=== PATIENT | male | born 1940 | race Native Hawaiian/Other Pacific Islander ===

== ENCOUNTER 2016-09-14 14:02 | Outpatient (CLI) | payer OTHER ==
[2016-09-14 14:34] LABS: PARTIAL THROMBOPLASTIN TIME 36.1 SECONDS (24.5-33.6)
== END 2016-09-14 16:02 | disposition home or self-care (01) ==
LOC: LABW 14:02
PROVIDERS: Internal Medicine
DX: Z79.01 Long term (current) use of anticoagulants (principal); Z51.81 Encounter for therapeutic drug level monitoring
CPT/HCPCS: 36415; 85610; 85730

== ENCOUNTER 2016-10-05 13:27 | Outpatient (CLI) | payer MEDICARE ==
[2016-10-05 14:16] LABS: PARTIAL THROMBOPLASTIN TIME 32.6 SECONDS (24.5-33.6)
== END 2016-10-05 19:08 | disposition home or self-care (01) ==
LOC: LABW 13:27
PROVIDERS: Internal Medicine
DX: Z79.01 Long term (current) use of anticoagulants (principal); Z51.81 Encounter for therapeutic drug level monitoring
CPT/HCPCS: 36415; 85610; 85730

== ENCOUNTER 2016-11-01 18:19 | Outpatient (CLI) | payer MEDICARE ==
[2016-11-01 19:12] LABS: PARTIAL THROMBOPLASTIN TIME 31.3 SECONDS (24.5-33.6)
== END 2016-11-01 19:19 | disposition home or self-care (01) ==
LOC: LABW 18:19
PROVIDERS: Internal Medicine
DX: Z79.01 Long term (current) use of anticoagulants (principal); Z51.81 Encounter for therapeutic drug level monitoring
CPT/HCPCS: 85610; 85730

== ENCOUNTER 2016-12-01 14:41 | Outpatient (CLI) | payer MEDICARE ==
[2016-12-01 15:19] LABS: PARTIAL THROMBOPLASTIN TIME 32.5 SECONDS (24.5-33.6)
== END 2016-12-01 19:11 | disposition home or self-care (01) ==
LOC: LABW 14:41
PROVIDERS: Internal Medicine
DX: Z79.01 Long term (current) use of anticoagulants (principal); Z51.81 Encounter for therapeutic drug level monitoring
CPT/HCPCS: 36415; 85610; 85730

== ENCOUNTER 2017-01-04 13:38 | Outpatient (CLI) | payer MEDICARE ==
[2017-01-04 14:53] LABS: PARTIAL THROMBOPLASTIN TIME 35.4 SECONDS (24.5-33.6)
== END 2017-01-04 19:52 | disposition home or self-care (01) ==
LOC: LABW 13:38
PROVIDERS: Internal Medicine
DX: Z79.01 Long term (current) use of anticoagulants (principal); Z51.81 Encounter for therapeutic drug level monitoring
CPT/HCPCS: 36415; 85610; 85730

== ENCOUNTER 2017-02-01 12:01 | Outpatient (CLI) | payer MEDICARE ==
[2017-02-01 12:55] LABS: PARTIAL THROMBOPLASTIN TIME 34.3 SECONDS (24.5-33.6)
== END 2017-02-01 13:05 | disposition home or self-care (01) ==
LOC: LABW 12:01
PROVIDERS: Internal Medicine
DX: Z79.01 Long term (current) use of anticoagulants (principal); Z51.81 Encounter for therapeutic drug level monitoring
CPT/HCPCS: 36415; 85610; 85730

== ENCOUNTER 2017-03-08 13:00 | Outpatient (CLI) | payer MEDICARE ==
[2017-03-08 14:00] LABS: PARTIAL THROMBOPLASTIN TIME 32.5 SECONDS (24.5-33.6)
== END 2017-03-08 14:00 | disposition home or self-care (01) ==
LOC: LABW 13:00
PROVIDERS: Internal Medicine
DX: Z79.01 Long term (current) use of anticoagulants (principal); Z51.81 Encounter for therapeutic drug level monitoring
CPT/HCPCS: 85610; 85730

== ENCOUNTER 2017-05-10 13:08 | Outpatient (CLI) | payer MEDICARE ==
[2017-05-10 14:06] LABS: PARTIAL THROMBOPLASTIN TIME 32.9 SECONDS (24.5-33.6)
== END 2017-05-10 14:10 | disposition home or self-care (01) ==
LOC: LABW 13:08
PROVIDERS: Internal Medicine
DX: Z79.01 Long term (current) use of anticoagulants (principal); Z51.81 Encounter for therapeutic drug level monitoring
CPT/HCPCS: 36415; 85610; 85730

== ENCOUNTER 2017-06-07 13:07 | Outpatient (CLI) | payer MEDICARE ==
[2017-06-07 13:41] LABS: PARTIAL THROMBOPLASTIN TIME 32.5 SECONDS (24.5-33.6)
== END 2017-06-07 19:19 | disposition home or self-care (01) ==
LOC: LABW 13:07
PROVIDERS: Internal Medicine
DX: Z79.01 Long term (current) use of anticoagulants (principal); Z51.81 Encounter for therapeutic drug level monitoring
CPT/HCPCS: 36415; 85610; 85730

== ENCOUNTER 2017-08-12 13:03 | Outpatient (CLI) | payer OTHER ==
[2017-08-12 13:33] LABS: PARTIAL THROMBOPLASTIN TIME 33.2 SECONDS (24.5-33.6)
== END 2017-08-12 19:30 | disposition home or self-care (01) ==
LOC: LABW 13:03
PROVIDERS: Internal Medicine
DX: Z79.01 Long term (current) use of anticoagulants (principal); Z51.81 Encounter for therapeutic drug level monitoring
CPT/HCPCS: 36415; 85610; 85730

== ENCOUNTER 2017-09-13 12:53 | Outpatient (CLI) | payer OTHER ==
[2017-09-13 14:07] LABS: PARTIAL THROMBOPLASTIN TIME 32.7 SECONDS (24.5-33.6)
== END 2017-09-13 23:48 | disposition home or self-care (01) ==
LOC: LABW 12:53
PROVIDERS: Internal Medicine
DX: Z79.01 Long term (current) use of anticoagulants (principal); Z51.81 Encounter for therapeutic drug level monitoring
CPT/HCPCS: 36415; 85610; 85730

== ENCOUNTER 2017-10-11 14:45 | Outpatient (CLI) | payer OTHER ==
[2017-10-11 15:41] LABS: PARTIAL THROMBOPLASTIN TIME 31.8 SECONDS (24.5-33.6)
== END 2017-10-11 16:00 | disposition home or self-care (01) ==
LOC: LABW 14:45
PROVIDERS: Internal Medicine
DX: Z79.01 Long term (current) use of anticoagulants (principal); Z51.81 Encounter for therapeutic drug level monitoring
CPT/HCPCS: 36415; 85610; 85730

== ENCOUNTER 2017-11-15 14:26 | Outpatient (CLI) | payer OTHER ==
[2017-11-15 15:12] LABS: PARTIAL THROMBOPLASTIN TIME 31.4 SECONDS (24.5-33.6)
== END 2017-11-15 19:51 | disposition home or self-care (01) ==
LOC: LABW 14:26
PROVIDERS: Internal Medicine
DX: Z79.01 Long term (current) use of anticoagulants (principal); Z51.81 Encounter for therapeutic drug level monitoring
CPT/HCPCS: 36415; 85610; 85730

== ENCOUNTER 2017-11-28 11:57 | Outpatient (CLI) | payer OTHER ==
[2017-11-28 13:33] LABS: PARTIAL THROMBOPLASTIN TIME 32.6 SECONDS (24.5-33.6)
== END 2017-11-28 19:27 | disposition home or self-care (01) ==
LOC: LABW 11:57
PROVIDERS: Internal Medicine
DX: Z79.01 Long term (current) use of anticoagulants (principal); Z51.81 Encounter for therapeutic drug level monitoring
CPT/HCPCS: 36415; 85610; 85730

== ENCOUNTER 2018-01-03 12:26 | Outpatient (CLI) | payer OTHER ==
[2018-01-03 13:08] LABS: PARTIAL THROMBOPLASTIN TIME 32.5 SECONDS (24.5-33.6)
== END 2018-01-03 23:05 | disposition home or self-care (01) ==
LOC: LABW 12:26
PROVIDERS: Internal Medicine
DX: Z79.01 Long term (current) use of anticoagulants (principal); Z51.81 Encounter for therapeutic drug level monitoring
CPT/HCPCS: 36415; 85610; 85730

== ENCOUNTER 2018-02-06 17:41 | Outpatient (CLI) | payer OTHER ==
[2018-02-06 18:19] LABS: PARTIAL THROMBOPLASTIN TIME 34.7 SECONDS (24.5-33.6)
== END 2018-02-06 19:21 | disposition home or self-care (01) ==
LOC: LABW 17:41
PROVIDERS: Internal Medicine
DX: Z79.01 Long term (current) use of anticoagulants (principal)
CPT/HCPCS: 36415; 85610; 85730

== ENCOUNTER 2018-02-27 16:17 | Outpatient (CLI) | payer OTHER ==
[2018-02-27 16:50] LABS: PARTIAL THROMBOPLASTIN TIME 28.6 SECONDS (24.5-33.6)
== END 2018-02-27 22:06 | disposition home or self-care (01) ==
LOC: LABW 16:17
PROVIDERS: Internal Medicine
DX: Z79.01 Long term (current) use of anticoagulants (principal); Z51.81 Encounter for therapeutic drug level monitoring
CPT/HCPCS: 36415; 85610; 85730

== ENCOUNTER 2018-05-08 09:32 | Outpatient (CLI) | payer OTHER | END 2018-05-08 22:17 | disposition home or self-care (01) | LOC: LABW 09:32 | DX: Z79.01 Long term (current) use of anticoagulants (principal) | CPT/HCPCS: 36415; 85610 ==

== ENCOUNTER 2018-05-29 17:03 | Outpatient (CLI) | payer OTHER | END 2018-05-29 19:27 | disposition home or self-care (01) | LOC: LABW 17:03 | DX: Z79.01 Long term (current) use of anticoagulants (principal) | CPT/HCPCS: 36415; 85610 ==

== ENCOUNTER 2018-06-12 13:17 | Outpatient (CLI) | payer OTHER | END 2018-06-12 19:32 | disposition home or self-care (01) | LOC: LABW 13:17 | DX: Z79.01 Long term (current) use of anticoagulants (principal) | CPT/HCPCS: 36415; 85610 ==

== ENCOUNTER 2018-07-28 16:25 | Outpatient (CLI) | payer OTHER ==
[2018-07-28 20:21] LABS: PARTIAL THROMBOPLASTIN TIME 37.2 SECONDS (24.5-33.6)
== END 2018-07-28 22:04 | disposition home or self-care (01) ==
LOC: LABW 16:25
PROVIDERS: Family Medicine
DX: Z79.01 Long term (current) use of anticoagulants (principal)
CPT/HCPCS: 36415; 85610; 85730

== ENCOUNTER 2018-09-22 16:06 | Outpatient (CLI) | payer OTHER | END 2018-09-22 20:34 | disposition home or self-care (01) | LOC: LABW 16:06 | DX: Z79.01 Long term (current) use of anticoagulants (principal); Z79.899 Other long term (current) drug therapy; Z95.2 Presence of prosthetic heart valve | CPT/HCPCS: 36415; 85610 ==

== ENCOUNTER 2018-09-26 12:49 | Outpatient (CLI) | payer OTHER | END 2018-09-26 21:08 | disposition home or self-care (01) | LOC: LABW 12:49 | DX: Z79.01 Long term (current) use of anticoagulants (principal); Z79.899 Other long term (current) drug therapy; Z95.2 Presence of prosthetic heart valve | CPT/HCPCS: 36415; 85610 ==

== ENCOUNTER 2018-10-03 12:22 | Outpatient (CLI) | payer OTHER | END 2018-10-03 19:33 | disposition home or self-care (01) | LOC: LABW 12:22 | DX: Z95.2 Presence of prosthetic heart valve (principal); Z79.899 Other long term (current) drug therapy; Z79.01 Long term (current) use of anticoagulants | CPT/HCPCS: 36415; 85610 ==

== ENCOUNTER 2018-10-17 14:10 | Outpatient (CLI) | payer OTHER | END 2018-10-17 22:17 | disposition home or self-care (01) | LOC: LABW 14:10 | DX: Z79.01 Long term (current) use of anticoagulants (principal); Z79.899 Other long term (current) drug therapy; Z95.2 Presence of prosthetic heart valve | CPT/HCPCS: 36415; 85610 ==

== ENCOUNTER 2018-11-13 14:44 | Outpatient (CLI) | payer OTHER | END 2018-11-13 22:29 | disposition home or self-care (01) | LOC: LABW 14:44 | DX: Z79.01 Long term (current) use of anticoagulants (principal); Z79.899 Other long term (current) drug therapy; Z95.2 Presence of prosthetic heart valve | CPT/HCPCS: 36415; 85610 ==

== ENCOUNTER 2018-12-18 15:45 | Outpatient (CLI) | payer OTHER | END 2018-12-18 20:02 | disposition home or self-care (01) | LOC: LABW 15:45 | DX: Z79.01 Long term (current) use of anticoagulants (principal); Z79.899 Other long term (current) drug therapy; Z95.2 Presence of prosthetic heart valve | CPT/HCPCS: 36415; 85610 ==

== ENCOUNTER 2019-02-05 09:57 | Outpatient (CLI) | payer OTHER | END 2019-02-05 23:32 | disposition home or self-care (01) | LOC: LABW 09:57 | DX: Z95.2 Presence of prosthetic heart valve (principal); Z79.01 Long term (current) use of anticoagulants; Z79.899 Other long term (current) drug therapy | CPT/HCPCS: 36415; 85610 ==

== ENCOUNTER 2019-05-07 14:28 | Outpatient (CLI) | payer OTHER | END 2019-05-07 19:23 | disposition home or self-care (01) | LOC: LABW 14:28 | DX: Z95.2 Presence of prosthetic heart valve (principal); Z79.01 Long term (current) use of anticoagulants; Z79.899 Other long term (current) drug therapy | CPT/HCPCS: 36415; 85610 ==

== ENCOUNTER 2019-05-21 15:56 | Outpatient (CLI) | payer OTHER | END 2019-05-21 22:17 | disposition home or self-care (01) | LOC: LABW 15:56 | DX: Z79.01 Long term (current) use of anticoagulants (principal); Z79.899 Other long term (current) drug therapy; Z95.2 Presence of prosthetic heart valve | CPT/HCPCS: 36415; 85610 ==

== ENCOUNTER 2019-06-05 15:51 | Outpatient (CLI) | payer OTHER | END 2019-06-05 20:11 | disposition home or self-care (01) | LOC: LABW 15:51 | DX: Z79.01 Long term (current) use of anticoagulants (principal); Z79.899 Other long term (current) drug therapy; Z95.2 Presence of prosthetic heart valve | CPT/HCPCS: 36415; 85610 ==

== ENCOUNTER 2022-05-27 20:24 | Emergency (ER) | payer OTHER ==
[~2022-05-27] VITALS: Ht 182.9 cm; Wt 78.5 kg
[2022-05-27 21:33] LABS: PLATELET COUNT 211 K/uL (142-355)
[2022-05-27 21:40] LABS: POTASSIUM 4.4 mmol/L (3.6-5.2)
[2022-05-27 22:42] VITALS: BP 147/71; TEMP 98.1
== END 2022-05-27 22:42 | disposition home or self-care (01) ==
LOC: ED 20:24
PROVIDERS: Emergency Medicine Emergency Medical Services
DX: T18.128A Food in esophagus causing other injury, initial encounter (principal); X58.XXXA Exposure to other specified factors, initial encounter; Y92.89 Other specified places as the place of occurrence of the external cause
CPT/HCPCS: 36415; 80048; 84484; 85027; 85610; 93005; 96360; 96374; 96375; 99284; J2405; J3490